=== PATIENT | male | born 1965 | race Caucasian/White ===

== ENCOUNTER → 2023-11-22 | Outpatient (CLI) | payer BC | END | disposition home or self-care (01) | LOC: LABPAT 09:55 | PROVIDERS: ATTEND Orthopaedic Surgery | DX: Z01.812 Encounter for preprocedural laboratory examination (principal); M17.11 Unilateral primary osteoarthritis, right knee; Z22.322 Carrier or suspected carrier of Methicillin resistant Staphylococcus aureus | CPT/HCPCS: 87070 ==

== ENCOUNTER 2024-01-04 08:08 | Observation (INO) | payer BC ==
--- NOTE | 2024-01-03 08:58 | P.HPOR ---
History of Present Illness H&P Date: 01/03/24 Chief Complaint: Right knee pain The patient is a 58-year-old male who presents with progressive right knee pain for the past several years. He notes pain with weightbearing activities along with swelling and stiffness. He intermittently has buckling and locking. He has tried medications along with injections with only temporary partial relief. Review of Systems Per HPI Past Medical History Past Medical History: Cancer, Osteoarthritis (OA) Additional Past Medical History / Comment(s): seasonal allergies, Hodgkin's Lymphoma 2001, basal cell skin cancer removed Rt. cheek History of Any Multi-Drug Resistant Organisms: None Reported Past Surgical History: Joint Replacement, Orthopedic Surgery Additional Past Surgical History / Comment(s): Lt. TKA, Rt. ACL reconstruction, ankle surgery, several knee surgeries bilat., chest lymph node biopsy, 2 medi ports inserted and removed Past Anesthesia/Blood Transfusion Reactions: No Reported Reaction Smoking Status: Never smoker - Past Family History Father Family Medical History: Cancer Additional Family Medical History / Comment(s): melanoma w/ widespread metastastses Mother Family Medical History: Coronary Artery Disease (CAD) Sister(s) Family Medical History: Cancer Additional Family Medical History / Comment(s): age 42 of appendix cancer Medications and Allergies Home Medications Medication Instructions Recorded Confirmed Type Naproxen Sodium [Aleve] 440 mg PO DAILY PRN 12/29/23 12/29/23 History Allergies Allergy/AdvReac Type Severity Reaction Status Date / Time No Known Allergies Allergy Verified 12/29/23 13:57 Physical Examination - Knee right Appearance: effusion Effusion grade: grade 2 Tenderness with palpation: anterior, medial Pain: throughout ROM Gait: limping ROM: extension: -10 degrees ROM: flexion: 110 degrees Crepitus with motion: Yes Strength: extension: 5/5 Strength: flexion: 5/5 Meniscal tests: medial meniscal tests: positive, medial joint line pain: positive Results The patient is a well-developed well-nourished male approximately 5 foot 11, 275 pounds of endomorphic habitus. HEENT exam is nonfocal, neck is supple. He has painless passive motion of his right hip. Straight leg raise is negative. He is tender about the medial joint line of the right knee. Collaterals are stable, Viral's negative, Radha's is equivocal. He does have an antalgic gait pattern. His distal neurovascular exam appears intact in the right lower extremity. - Diagnostic results Knee x-ray: image reviewed (X-rays of the right knee obtained the office show severe tricompartmental osteoarthrosis with [id number] changes along with subchondral sclerosis. Retained joseph in the distal femur and proximal tibia are noted.) Assessment and Plan Assessment: Right knee severe tricompartmental osteoarthrosis Retained hardware right knee Plan: I talked to the patient at length regarding his condition along with treatment options. At this point he is quite limited and symptomatic having pain and mechanical symptoms related to his right knee osteoarthrosis despite previous conservative measures. After a thorough discussion he opts to proceed with surgery. We will plan to proceed with right total knee arthroplasty in addition to possible hardware removal. Risks and benefits were discussed at length in layman's terms. We will institute DVT prophylaxis postoperatively.
[~2024-01-04 08:08] MED LIST: HYDROmorphone 0.5 MG/0.5 ML SYRINGE IVP PRN; LIDOCAINE 1% (10MG/ML) FOR IV START INTRADERMA PRN; TRANEXAMIC 1,000 MG/100ML-NACL 1,000 MG in SALINE 1 100ML.BAG IVPB PRN; fentaNYL (PF) 50 MCG/ML 2 ML AMP IVP PRN
[2024-01-04] MEDS: IV FLUID CONTINUATION 1,000 ML IV ONE (09:00)
[2024-01-04] MEDS: LACTATED RINGERS 1,000 ML IV SCH (09:15)
[2024-01-04] MEDS: ONDANSETRON 4 MG/2 ML VIAL IVP ONE (09:15)
[2024-01-04] MEDS: ACETAMINOPHEN TAB 500 MG TAB PO PRN (09:16)
[2024-01-04] MEDS: DEXAMETHASONE SOD PHOSPHATE 4 MG/ML 1 ML VIAL IV ONE (09:16)
[2024-01-04] MEDS: MELOXICAM 7.5 MG TAB PO PRN (09:16)
[2024-01-04] MEDS: fentaNYL (PF) 50 MCG/ML 2 ML AMP IVP ONE (09:34)
[2024-01-04] MEDS: MIDAZOLAM 2 MG/2 ML VIAL IV PRN (09:34)
[2024-01-04] MEDS ORDERED: TRANEXAMIC 1,000 MG/100ML-NACL PREMIX BAG ONE (10:00)
[2024-01-04] MEDS ORDERED: SODIUM CHLORIDE 0.9% (PF) 10 ML VIAL ONE (10:00)
[2024-01-04] MEDS ORDERED: fentaNYL (PF) 50 MCG/ML 2 ML AMP ONE (10:00)
[2024-01-04] MEDS: ceFAZolin 3 GM in SODIUM CHLORIDE 0.9% 100 ML IVPB PRN (10:00)
[2024-01-04] MEDS ORDERED: PROPOFOL 10 MG/ML 20 ML VIAL IV ONE (10:00)
[2024-01-04] MEDS ORDERED: DEXAMETHASONE SOD PHOSPHATE 4 MG/ML 1 ML VIAL ONE (10:00)
[2024-01-04] MEDS ORDERED: ROPIVACAINE 5 MG/ML 30 ML VIAL ONE (10:00)
[2024-01-04] MEDS ORDERED: MIDAZOLAM 2 MG/2 ML VIAL ONE (10:00)
[2024-01-04] MEDS ORDERED: PHENYLEPHRINE 10 MG/ML VIAL ONE (10:00)
--- NOTE | 2024-01-04 10:00 | P.ANPRN ---
Procedure Note - Anesthesia - Nerve Block Performed Right Adductor Canal Infusion Time Out Performed: Yes Date of Procedure: 01/04/24 Procedure Start Time: :34 Procedure Stop Time: :41 Location of Patient: PreOp Indication: Acute Post-Operative Pain, Requested by Surgeon Sedation Type: Sedate with meaningful contact maintained Preparation: Sterile Prep, Sterile Dressing Position: Supine Catheter: Indwelling Needle Types: Pajunk Needle Gauge: 18 Ultrasound used to visualize needle placement: Yes Ultrasound used to observe medication spread: Yes Injectate: 0.5% Ropivacaine (see comment for volume) (20 ml + 10 ml NS) Blood Aspirated: No Pain Paresthesia on Injection Noted: No Resistance on Injection: Normal Image Stored and Saved: Yes Events: Uneventful and Well Tolerated
--- NOTE | 2024-01-04 10:01 | P.ANPRN ---
Procedure Note - Anesthesia - Nerve Block Performed Right iPack Single Time Out Performed: Yes Date of Procedure: 01/04/24 Procedure Start Time: :42 Procedure Stop Time: :48 Location of Patient: PreOp Indication: Acute Post-Operative Pain, Requested by Surgeon Sedation Type: Sedate with meaningful contact maintained Preparation: Sterile Prep Position: Left Lateral Needle Types: Pajunk Needle Gauge: 21 Ultrasound used to visualize needle placement: Yes Ultrasound used to observe medication spread: Yes Injectate: 0.5% Ropivacaine (see comment for volume) (20 ml + 10 ml NS + 4mg Dexamethasone) Blood Aspirated: No Pain Paresthesia on Injection Noted: No Resistance on Injection: Normal Image Stored and Saved: Yes Events: Uneventful and Well Tolerated
[2024-01-04] MEDS: ceFAZolin 1,000 MG in SODIUM CHLORIDE 0.9% 1,000 ML IRRIGATION ONE (10:49)
[2024-01-04] MEDS: LACTATED RINGERS 1,000 ML IV ONE (11:17)
[2024-01-04] MEDS ORDERED: HYDROcodone/APAP 5-325MG 1 EACH TAB PO PRN (12:15)
[2024-01-04] MEDS ORDERED: MAGNESIUM HYDROXIDE 2,400 MG/30 ML CUP PO PRN (12:15)
[2024-01-04] MEDS ORDERED: NALOXONE 0.4 MG/ML 1 ML VIAL IV PRN (12:15)
--- NOTE | 2024-01-04 12:40 | P.OP ---
Date of Procedure: 01/04/24 Preoperative Diagnosis: Right knee severe tricompartmental osteoarthrosis Postoperative Diagnosis: Same Procedure(s) Performed: Right total knee arthroplastycementedposterior stabilized Implants: DePuy attune size 8 cemented femoral component, size 8 cemented tibial component, 9 mm articular surface, 38 mm cemented patellar component. This is a posterior stabilized implant. Anesthesia: regional, spinal Surgeon: Alex Cabrera Night Auditor #1: Peyman Arauz Estimated Blood Loss (ml): 50 Pathology: none sent Condition: stable Disposition: PACU Indications for Procedure: The patient is a 58-year-old male who presents with progressive right knee pain secondary to osteoarthrosis despite conservative measures. A discussion of the risks and benefits of operative intervention versus continued conservative measures was made with the patient. He opted to proceed with surgery. Operative risks include infection, neurovascular injury, development of blood clots, fracture, possible component loosening/failure and possible need for subsequent procedures was discussed. Informed consent was obtained. Operative Findings: As below Description of Procedure: The patient was brought to the operating room, and after induction of spinal anesthesia the right lower extremity was prepped and draped in a normal fashion. The tourniquet was inflated to 270 mm marker. A longitudinal incision extending 3 finger breaths above the superior pole of patella extending to the medial aspect the tibial tubercle was then made. The skin and subcutaneous tissues were divided sharply. Electrocautery was used for hemostasis. A medial parapatellar arthrotomy was performed. The medial soft tissues to include the superficial and deep portions of the medial collateral ligament were elevated subperiosteally. The proximal medial tibial staple was identified and this was removed. The patella was everted. A portion of the retropatellar fat pad was excised sharply. The anterior cruciate ligament was sacrificed. Blunt retractors were placed. A starting hole was made in the distal femur 1 cm anterior to the posterior cruciate ligament origin. An intramedullary femoral guide was then inserted planning on 5 valgus distal cut with 9 mm distal resection. The cutting block was pinned in place. The distal cut was then made. The posterior referencing sizing guide was utilized. I felt size 8 was most appropriate. 3 of external rotation was built into the system and verified off the trans-epicondylar axis and the posterior condyles. The cutting block was pinned in place. The anterior, posterior, and chamfer cuts then made. Bone fragments were removed. The intercondylar guide was placed and the notch cut was made with a sagittal saw. The bone block was removed in one fragment. The trial component was then placed. There is good anterior to posterior and medial to lateral fit. The distal peg holes were drilled. The trial component was removed. Attention was then paid towards preparing the proximal tibia. An extra medullary guide was utilized in line with the tibial shaft and second metatarsal distally. I planned on 2 mm resection from the medial compartment. The cutting block was pinned in place. The proximal tibial cut was then made. The bone was removed in one fragment. The remnants of the medial and lateral menisci were excised at the capsular junction with electrocautery. The tibia sized most appropriately at size 8. The trial femoral and tibial components were placed along with a 9 mm articular surface. I was able to obtain full flex ion and extension with internal and external rotation. After several flexion and extension cycles, the tibial rotation was marked with electrocautery line with the medial one third of the tibial tubercle. Attention was then paid towards preparing the patella. A patella reamer was utilized taking stem to 14 mm of bone stock. A good flush cut was made. The patella sized most appropriately 38 mm. The peg holes were drilled. The trial components placed. I had good patellofemoral tracking with no hands technique. The trial components were then removed. The tibia was prepared in the appropriate rotation with appropriate drill and keel punch planning on a 14 x 50 mm tibial stem extension. The posterior osteophytes were removed with a curved osteotome. The flexion and extension gaps were checked and felt to be symmetric at 9 mm. A trial components were then removed. The bony surfaces were prepared with pulsatile lavage and dried. The tibial component was then cemented place was fully seated. Excess cement was removed. The femoral component cemented place and was fully seated. Excess cement was removed. The trial 9 mm articular surface was placed and the knee was put in full extension. The patella component was cemented place. After the cement had sufficiently hardened, the knee was again taken through a range of motion. Again I was able to obtain full flexion and extension with varus and valgus stress. The trial 9 mm articular surface was removed and the final one inserted. This was fully seated. Care was taken to avoid any soft tissue interposition. Pulsatile lavage was again utilized. The medial parapatellar arthrotomy was closed with #2 Ethibond suture. The tourniquet was deflated with approximately 80 minutes total tourniquet time. Final hemostasis was obtained with the cautery. There was minimal bleeding therefore a deep drain was not placed. The subcutaneous tissues were reapproximated with interrupted 2-0 Vicryl sutures. The skin was reapproximated with 3-0 subcuticular strata fix suture. Skin tape and adhesive was applied. A sterile dressing was applied. The patient was awoken from sedation and transferred to recovery room in good condition. Blood loss was estimated at 50 mL. No complications were incurred. Sponge and needle counts were correct at the end of the case. Peyman JONES assisted during the major components of this case to include exposure, bone resection, implantation, and closure.
[2024-01-04] MEDS: ROPIVACAINE 1,100 MG, SODIUM CHLORIDE 0.9% 500 ML 330 ML, EMPTY PAIN BALL 1 EACH MISCELLANE PRN (13:13)
--- NOTE | 2024-01-04 13:18 | XR ---
EXAMINATION TYPE: XR knee limited RT DATE OF EXAM: 01/04/2024 COMPARISON: NONE TECHNIQUE: Two views submitted HISTORY: Post op FINDINGS: There is a prosthetic knee in near anatomic alignment. There is soft tissue edema and soft tissue e mphysema compatible with recent surgery. Ossified density posterior to the knee likely related to acc essory ossicle. IMPRESSION: 1. Postoperative change.
[2024-01-04] MEDS: ceFAZolin 3 GM in SODIUM CHLORIDE 0.9% 100 ML IVPB SCH (17:49)
[2024-01-04] MEDS: HYDROmorphone 0.5 MG/0.5 ML SYRINGE IVP PRN (17:50)
--- NOTE | 2024-01-04 18:22 | P.CONS ---
History of Present Illness - Reason for Consult Consult date: 01/04/24 Medical management Requesting physician: Alex Cabrera - Chief Complaint Right knee surgery - History of Present Illness This is a pleasant 58-year-old patient who follows with Dr. Sherie Madera. Rather in good health. Patient has arthritis in several joints. Also has trouble insomnia because it is doing night shifts. Gets occasional GERD. Has undergone right total knee arthroplasty. Pain controlled. No nausea vomiting. Denies any cardiac history. Up in a recliner. Review of systems: GEN.: None EYES: None HEENT: None NECK: None RESPIRATORY: None CARDIOVASCULAR: None GASTROINTESTINAL: Occasional heartburn GENITOURINARY: None MUSCULOSKELETAL: Arthritic pain in the joints LYMPHATICS: None HEMATOLOGICAL: None PSYCHIATRY: None NEUROLOGICAL: [Trouble sleeping sometimes because did night shifts Social history: Lives alone. Used to work for [employer]. Has about 2 drinks a week. No smoking. Physical examination: VITAL SIGNS: 98.1, 17, 72, 136 bradycardia 6, 98% room air GENERAL: BMI 37.7, sitting up in the recliner awake comfortable. EYES: Pupils equal. Conjunctiva jyotsna l. HEENT: External appearance of nose and ears normal, oral cavity grossly normal. NECK: JVD not raised; masses not palpable. HEART: First and second heart sounds are normal; no edema. LUNGS: Respiratory rate normal; clear to auscultation. ABDOMEN: Soft, nontender, liver spleen not palpable, no masses palpable. PSYCH: Alert and oriented x3; mood and affect jyotsna l. MUSCULOSKELETAL:No Clubbing/cyanosis;muscles-grossly intact. Dressing Andrea wrap over the right knee. Evidence of OA in other joints NEUROLOGICAL: Cranial nerves grossly intact; no facial asymmetry, power and sensation grossly intact. LYMPHATICS: No lymph nodes palpable in the axilla and neck. Assessment plan: -Right total knee arthroplasty IV cefazolin for infection prophylaxis. Received 1 dose of Decadron. Pain controlled. -Primary osteoarthritis multiple joints Pain control as needed -GERD Use Pepcid as needed or Tums -Obesity BMI 37.7 Weight loss measures -Insomnia May use melatonin as needed Care was discussed with patient. Questions answered. Thank you Dr. Cabrera Past Medical History Past Medical History: Cancer, Osteoarthritis (OA) Additional Past Medical History / Comment(s): seasonal allergies, Hodgkin's Lymphoma 2002, basal cell skin cancer removed Rt. cheek History of Any Multi-Drug Resistant Organisms: None Reported Past Surgical History: Joint Replacement, Orthopedic Surgery Additional Past Surgical History / Comment(s): Lt. TKA, Rt. ACL reconstruction, ankle surgery, several knee surgeries bilat., chest lymph node biopsy, 2 medi ports inserted and removed Past Anesthesia/Blood Transfusion Reactions: No Reported Reaction Smoking Status: Never smoker - Past Family History Father Family Medical History: Cancer Additional Family Medical History / Comment(s): melanoma w/ widespread metastastses Mother Family Medical History: Coronary Artery Disease (CAD) Sister(s) Family Medical History: Cancer Additional Family Medical History / Comment(s): age 42 of appendix cancer Medications and Allergies Home Medications Medication Instructions Recorded Confirmed Type Naproxen Sodium [Aleve] 440 mg PO DAILY PRN 12/29/23 12/29/23 History Allergies Allergy/AdvReac Type Severity Reaction Status Date / Time No Known Allergies Allergy Verified 01/04/24 08:30 Physical Exam Vitals: Vital Signs Temp Pulse Pulse Resp BP BP BP 01/04/24 17:58 98.1 F 17 136/86 01/04/24 17:00 72 18 112/59 01/04/24 16:00 77 18 104/61 01/04/24 15:00 71 16 104/57 01/04/24 14:30 71 18 98/63 01/04/24 14:00 61 18 88/55 01/04/24 13:45 59 L 16 88/52 01/04/24 13:30 60 16 85/54 01/04/24 13:15 62 16 90/51 01/04/24 13:00 64 16 98/57 01/04/24 12:45 63 16 109/59 01/04/24 12:30 97.0 F L 68 14 109/62 01/04/24 09:48 79 16 106/69 01/04/24 08:41 97.4 F L 68 18 132/74 Pulse Ox 01/04/24 17:58 98 01/04/24 17:00 96 01/04/24 16:00 97 01/04/24 15:00 97 01/04/24 14:30 96 01/04/24 14:00 96 01/04/24 13:45 98 01/04/24 13:30 96 01/04/24 13:15 96 01/04/24 13:00 96 01/04/24 12:45 97 01/04/24 12:30 99 01/04/24 09:48 98 01/04/24 08:41 98 Intake and Output 01/04/24 01/04/24 01/04/24 06:59 14:59 22:59 Intake Total 2100 Output Total 50 400 Balance 2050 Intake: IV 2100 Output: Urine 400 Estimated Blood Loss 50 Other: Weight 122.7 kg 122.7 kg
[2024-01-04] MEDS: SENNOSIDES-DOCUSATE SODIUM 1 EACH TAB PO SCH (23:58)
[2024-01-04] MEDS: HYDROmorphone 1 MG/ML 1 ML SYRINGE IVP PRN (23:59)
[2024-01-05 02:00] VITALS: TEMP 98.4
--- NOTE | 2024-01-05 06:48 | P.PN ---
Progress Note - Text Progress Note Date: 01/05/24 Postoperative day # 1 status post total knee arthroplasty, and adductor canal catheter placed for postoperative analgesia, currently at ropivacaine 0.2% 8 mL per hour and continuous infusion, visual analogue scale is 3/10, patient using oral pain medication for breakthrough pain. Assessment and plan= Acute postoperative pain, adductor canal catheter for pain control, pain is well controlled we'll continue the same management.
[2024-01-05] MEDS: HYDROcodone/APAP 7.5-325MG 1 EACH TAB PO PRN (06:53)
[2024-01-05 08:44] LABS: Basophils # (A) 0.02 X 10*3/uL (0.00-0.10); Basophils % (A) 0.1 %; Eosinophils # (A) 0 X 10*3/uL (0.04-0.35); Eosinophils % (A) 0 %; HGB 13.8 g/dL (13.0-17.0); Lymphocytes # (A) 1.22 X 10*3/uL (0.90-5.00); Lymphocytes % (A) 8.7 %; MCH 32.4 pg (27.0-32.0); MCHC 35.4 g/dL (32.0-37.0); MCV 91.5 FL (80.0-97.0); Mean Platelet Volume 9.6 FL (9.5-12.2); Monocytes # (A) 1.11 X 10*3/uL (0.20-1.00); Monocytes % (A) 7.9 %; NRBC Per 100 WBC 0 X 10*3/uL (0.00-0.01); Neutrophils # (A) 11.56 X 10*3/uL (1.80-7.70); Neutrophils % (A) 82.9 %; Platelet Count 252 X 10*3/uL (140-440); RBC 4.26 X 10*6/uL (4.40-5.60); WBC 13.97 X 10*3/uL (4.50-10.00)
[2024-01-05] MEDS: RIVAROXABAN 10 MG TAB PO SCH (08:58)
[2024-01-05 09:29] VITALS: BP 123/71; PULSE 74; RESP 17
[2024-01-05] MEDS: hydrOXYzine pamoate 25 MG CAP PO PRN (11:19)
--- NOTE | 2024-01-05 12:53 | P.DS ---
Providers Date of admission: 01/04/24 08:09 Expected date of discharge: 01/05/24 Attending physician: Alex Cabrera Consults: 01/04/24 12:15 Consult Physician Routine Consulting Provider: Terry Goodson Consult Reason/Comments: medical management s/p right total knee arthroplasty Do you want consulting provider notified?: Yes Primary care physician: Sherie Madera Hospital Course: Date of admission: 01/04/2024 Date of discharge: 01/05/2024 Admission diagnosis: Right knee osteoarthritis Discharge diagnosis: same Attending physician: Dr. Cabrera Surgical procedures: Right total knee arthroplasty Brief history: Patient is a 58-year-old male with a history of progressive primary right knee osteoarthritis. At this point patient has failed conservative treatment measures and has opted to proceed with a elective right total knee arthroplasty. Hospital course: Details of patient's surgery can be found in operative report. Patient tolerated the procedure well and was subsequently transported to orthopedic floor. Patient's orthopeidc and medical care was provided daily. Patient had daily laboratory tests performed for evaluation of overall blood counts. Patient had daily physical therapy to include strengthening range of motion as well as education with walker ambulation. Patient was treated with Xarelto for their postoperative DVT prophylaxis during their inpatient stay. Patient was noted to have a relatively uneventful postoperative course. Patient reported satisfactory pain control with oral pain medications by postoperative day 1. Patient showed satisfactory progress with physical therapy. Patient moved steadily through the program and had no difficulty meeting the goals by postoperative day 1. Given patient's otherwise satisfactory course and having met physical therapy goals, plan is to discharge patient home with health services on postoperative day 1. Discharge condition/disposition: Patient will be discharged home with health services in stable condition. Discharge medications: Instructions are given on resumption of patient's normal daily medications per primary care recommendation, in addition patient will be prescribed [place]; senna; Eliquis 2.5 mg twice a day 2 weeks. Discharge instructions: 1. Wound care and infection precautions, keep incision dry and covered while showering, no lotions, creams, moisturizers. No soaking, tubs, pools, hottubs. Do not scrub over the incision. 2. Weight-bear as tolerated with walker / cane until follow-up. 3. Ice and elevate when necessary. Do not exceed 20 minutes per hour with ice pack. 4. Utilize compression sleeve until seen at first follow up appointment. 5. Visiting nursing care. 6. Home physical therapy including home CPM. 7. Pain meds and anticoagulants per prescription. 8. Pain medication has potential to cause constipation. Increase oral fluid and fiber intake. Contact primary care provider if you have not had a bowel movement within 48 hours after discharge 9. No anti-inflammatory medication until discussed at first post operative visit, this including Motrin, Aleve, Mobic, Diclofenac. 10. Follow up in office at 2 weeks postop with Darrian Garland PA-C / Peyman Arauz PA-C 11. Follow up with your primary care doctor 7-10 days after discharge. 12. Contact [facility] with any questions, . Assessment: Right knee osteoarthritis Procedures: Right total knee arthroplasty Patient Condition at Discharge: Good Plan - Discharge Summary Discharge Rx Participant: No New Discharge Prescriptions: New Sennosides-Docusate Sodium [Senokot-S] 2 each PO HS #30 tab Apixaban [Eliquis] 2.5 mg PO BID #60 tab HYDROcodone/APAP 7.5-325MG [[place] 7.5-325] 1 - 2 tab PO Q6HR PRN #36 tab PRN Reason: pain Continue Naproxen Sodium [Aleve] 440 mg PO DAILY PRN PRN Reason: Pain Discharge Medication List Naproxen Sodium [Aleve] 440 mg PO DAILY PRN 12/29/23 [History] Apixaban [Eliquis] 2.5 mg PO BID #60 tab 01/05/24 [Rx] HYDROcodone/APAP 7.5-325MG [[place] 7.5-325] 1 - 2 tab PO Q6HR PRN #36 tab 01/05/24 [Rx] Sennosides-Docusate Sodium [Senokot-S] 2 each PO HS #30 tab 01/05/24 [Rx] Follow up Appointment(s)/Referral(s): [facility] [NON-STAFF] - As Needed [facility], [NON-STAFF] - 1-2 Days Sherie Madera MD [Primary Care Provider] - 1 Week Peyman Arauz PAC [PHYSICIAN COMPUTER OPERATIONS SPECIALIST] - 2 Weeks Activity/Diet/Wound Care/Special Instructions: Orthopedic Discharge Instructions: 1. Wound care and infection precautions, keep incision dry and covered while showering, no lotions, creams, moisturizers. No soaking, pools, hot tubs. Do not scrub over incision. 2. Weight-bear as tolerated with walker / cane until follow-up. 3. Ice and elevate when necessary. Do not exceed 20 minutes per hour with ice pack. 4. Utilize compression sleeve until seen at first follow up appointment. 5. Pain meds and anticoagulants per prescription. 6. Pain medication has potential to cause constipation. Increase oral fluid and fiber intake. Contact primary care provider if you have not had a bowel movement within 48 hours after discharge. 7. No anti-inflammatory medication until discussed at first post operative visit, this including Motrin, Aleve, Mobic, Diclofenac. 8. Follow up in office at 2 weeks postop with Darrian Garland PA-C / Peyman Arauz PA-C 9. Follow up with your primary care doctor 7-10 days after discharge. 10. Contact [facility] with any questions, . Keep incision clean, dry, intact. While showering, cover fusion tape with Saran wrap. Keep fusion tape on until follow-up appointment in office in 2 weeks Discharge Disposition: HOME WITH HOME HEALTH SERVICES
--- NOTE | 2024-01-05 13:23 | P.PN ---
Subjective Progress Note Date: 01/05/24 Principal diagnosis: Right knee osteoarthritis Patient was seen at bedside this morning sitting at the edge of the bed with a dressing present over right knee. Patient says he did do well with therapy this morning walked down the [place] and up-and-down stairs. Patient says he does have a walker home. Patient says he has urinated and did have a bowel movement since surgery yesterday. Patient denies chest pain, fever, shortness breath, nausea, vomiting, change in vision, loss of bowel/bladder control. Objective - Vital Signs Vital signs: Vital Signs Temp 98.4 F 01/05/24 08:01 Pulse 74 01/05/24 08:01 Resp 17 01/05/24 08:01 BP 123/71 01/05/24 08:01 Pulse Ox 97 01/05/24 08:01 FiO2 Intake & Output 01/04/24 01/05/24 01/05/24 18:59 06:59 18:59 Intake Total 2101 Output Total 450 600 Balance 1651 -600 Weight 122.7 kg Intake: IV 2100 Output: Urine 400 600 Estimated Blood Loss 50 Other: Voiding Method Toilet # Voids 3 - Exam Right knee: Incision is clean, dry, and intact. The exofin fusion tape is in good condition. There is minimal soft tissue swelling and ecchymosis surrounding the medial and lateral aspects of the incision. Calf is soft, no tenderness with pa lpation. Plantar flexion, dorsiflexion, EHL, FHL are intact. Sensory exam to light touch throughout the extremity is intact, dorsal pedis pulses 2+. - Labs CBC & Chem 7: 01/05/24 04:27 Labs: Abnormal Lab Results - Last 24 Hours (Table) 01/05/24 Range/Units 04:27 WBC 13.97 H (4.50-10.00) X 10*3/uL RBC 4.26 L (4.40-5.60) X 10*6/uL Hct 39.0 L (39.6-50.0) % MCH 32.4 H (27.0-32.0) pg Immature Gran # 0.06 H (0.00-0.04) X 10*3/uL Neutrophils # 11.56 H (1.80-7.70) X 10*3/uL Monocytes # 1.11 H (0.20-1.00) X 10*3/uL Eosinophils # 0 L (0.04-0.35) X 10*3/uL Assessment and Plan Assessment: 1. Right knee osteoarthritis - Postoperative day 1 status post right total knee arthroplasty Plan: 1. Right knee osteoarthritis - right total knee arthroplasty performed yesterday, 01/04/2024. Patient stable bedside this morning. Patient does have a walker home. Patient did do well with therapy. Discharge home today with health services. 2. Appreciate medical management 3. Pain management - [place] 4. DVT prophylaxis - Xarelto in hospital. Going home with Eliquis 2.5 mg twice a day 2 weeks 5. GI prophylaxis - senna 6. PT/OT - weightbearing as tolerated with walker 7. Encourage incentive spirometer use 8. Discharge planning - home today with health service Time with Patient: Less than 30
--- NOTE | 2024-01-05 21:59 | P.PN ---
Progress Note - Text Progress Note Date: 01/05/24 - Chief Complaint Right knee surgery - History of Present Illness This is a pleasant 58-year-old patient who follows with Dr. Sherie Madera. Rather in good health. Patient has arthritis in several joints. Also has trouble insomnia because it is doing night shifts. Gets occasional GERD. Has undergone right total knee arthroplasty. Pain controlled. No nausea vomiting. Denies any cardiac history. Up in a recliner. January 04: Saw the patient this morning.. Doing well. Pain controlled. Did tolerate his breakfast. Did walk in the hallway. Questions answered. Medications reviewed Social history: Lives alone. Used to work for DVT. Has about 2 drinks a week. No smoking. Physical examination: VITAL SIGNS: 98.4, 74, 17, 123 x 71, 97% room air GENERAL: See, comfortable EYES: Pupils equal. Conjunctiva jyotsna l. HEENT: External appearance of nose and ears normal, oral cavity grossly normal. NECK: JVD not raised; masses not palpable. HEART: First and second heart sounds are normal; no edema. LUNGS: Respiratory rate normal; clear to auscultation. ABDOMEN: Soft, nontender, liver spleen not palpable, no masses palpable. PSYCH: Alert and oriented x3; mood and affect jyotsna l. MUSCULOSKELETAL:No Clubbing/cyanosis;muscles-grossly intact. Dressing Andrea wrap over the right knee. Evidence of OA in other joints INVESTIGATIONS, reviewed in the clinical context: January 04: White count 13.9 hemoglobin 13.8 platelets 252 Assessment plan: -Right total knee arthroplasty IV cefazolin for infection prophylaxis. Received 1 dose of Decadron. Pain controlled. -Mild leukocytosis likely reactive from surgery. No obvious clinical evidence of infection. No respiratory urinary symptoms. -Primary osteoarthritis multiple joints Pain control as needed -GERD Use Pepcid as needed or Tums -Obesity BMI 37.7 Weight loss measures -Insomnia May use melatonin as needed Discussed. Questions answered. Follow-up with PCP. Thank you Dr. Cabrera Past Medical History Past Medical History: Cancer, Osteoarthritis (OA) Additional Past Medical History / Comment(s): seasonal allergies, Hodgkin's Lymphoma 2001, basal cell skin cancer removed Rt. cheek History of Any Multi-Drug Resistant Organisms: None Reported Past Surgical History: Joint Replacement, Orthopedic Surgery Additional Past Surgical History / Comment(s): Lt. TKA, Rt. ACL reconstruction, ankle surgery, several knee surgeries bilat., chest lymph node biopsy, 2 medi ports inserted and removed Past Anesthesia/Blood Transfusion Reactions: No Reported Reaction Smoking Status: Never smoker
== END 2024-01-05 13:56 | disposition home health service (06) ==
LOC: OR 08:08 → 4SSUR 08:09
PROVIDERS: ADMIT Orthopaedic Surgery; ATTEND Orthopaedic Surgery
DX: M17.11 Unilateral primary osteoarthritis, right knee (principal); G89.18 Other acute postprocedural pain; K21.9 Gastro-esophageal reflux disease without esophagitis; E66.9 Obesity, unspecified; Z68.37 Body mass index [BMI] 37.0-37.9, adult; G47.00 Insomnia, unspecified; Z85.71 Personal history of Hodgkin lymphoma; Z85.828 Personal history of other malignant neoplasm of skin
CPT/HCPCS: 64448; 64999; 85025